=== PATIENT | male | born 1995 | race Caucasian/White ===

== ENCOUNTER 2018-02-04 05:07 | Emergency (ER) | payer BC ==
[~2018-02-04 05:07] MED LIST: IBUP200C71 PO; IBUP600T22 PO; LOR5/325 PO; MELA3TAB31 PO
[2018-02-04 05:12] VITALS: BP 138/93
--- NOTE | 2018-02-04 05:19 | ER Report ---
History and Physical Time Seen By MD: 05:12 HPI/ROS CHIEF COMPLAINT: Left great toe injury HISTORY OF PRESENT ILLNESS: 22-year-old male presents ambulatory to the ER complaining of left toe pain. He was wearing high-heeled shoes as part of a costume. He is on his feet for several hours. He has 4/10 dull pain aggravated by walking and bending of the toe. Allergies: Coded Allergies: No Known Drug Allergies (Unverified , 02/04/18) Home Meds Active Scripts Tramadol Hcl (TRAMADOL HCL) 50 Mg Tablet, 1 TAB PO Q6H Y for PAIN, #12 MG TAKE ONE TO TWO TABLETS BY MOUTH EVERY FOUR TO SIX HOURS NEEDED Prov:KARLA TERRY DO 02/04/18 Reported Medications Ibuprofen (IBUPROFEN) 200 Mg Capsule, 3 CAP PO DAILY Y for PAIN, CAPSULE 03/15/16 Reviewed Nurses Notes: Yes Old Medical Records Reviewed: Yes Hx Smoking: No Smoking Status: Never Smoker Exposure to Second Hand Smoke?: No Hx Substance Use Disorder: No Hx Alcohol Use: Yes Constitutional Vital Sign - Last 24 Hours 02/04/18 05:12 Temp 98.8 Pulse 117 Resp 14 B/P (MAP) 138/93 Pulse Ox 95 O2 Delivery Room Air Physical Exam General appearance: Alert no distress. Respiratory: Chest is non tender, lungs are clear to auscultation. Cardiac: Regular rate and rhythm Extremities: Examination of left lower trauma. Extremity reveals tenderness of the great toe. There is no soft tissue swelling, ecchymosis or bruising. There is no joint effusion. There is no warmth or erythema to the joint to suggest gout. DIFFERENTIAL DIAGNOSIS: After history and physical exam differential diagnosis was considered for sprain, strain, fracture, dislocation, contusion. Medical Decision Making EKG/Imaging Imaging X-ray: Left great toe, 3 views was obtained. I viewed the images myself on the PACS system. My interpretation of the images is: No fracture no dislocation, no malalignment. The radiologist interpretation had no clinically significant variation from this interpretation. ED Course/Re-evaluation ED Course Patient was admitted to an examination room. H&P was done. The differential diagnoses was considered. On clinical examination. Patient has clinical findings of a toe sprain. His mechanism of injury would suggest a toe sprain. X-ray OB performed to rule out occult fracture. Diagnostic x-rays were unremarkable. Patient advised to conservative treatment plan. He is placed in a postoperative shoe to protect his toe. Patient's advised ibuprofen 600 mg 3 times daily. Patient was given a prescription for tramadol for temporary pain relief. Decision to Disposition Date: Feb 04, 2018 Decision to Disposition Time: 05:32 Depart Departure Latest Vital Signs Vital Signs Date Time Temp Pulse Resp B/P (MAP) Pulse Ox O2 Delivery O2 Flow Rate FiO2 02/04/18 05:12 98.8 117 14 138/93 95 Room Air Impression: Primary Impression: Sprain of left great toe Condition: Improved Disposition: HOME OR SELF-CARE New Scripts Tramadol Hcl (TRAMADOL HCL) 50 Mg Tablet 1 TAB PO Q6H Y for PAIN, #12 MG TAKE ONE TO TWO TABLETS BY MOUTH EVERY FOUR TO SIX HOURS NEEDED Prov: KARLA TERRY DO 02/04/18 Patient Instructions: Foot Sprain (ED) Additional Instructions: Take ibuprofen 200 mg 3-4 tablets 3 times a day with food Apply ice packs for 2 days, then advance to heat Avoid activity or shoes that aggravate the condition for 5-7 days Problem Qualifiers Primary Impression: Sprain of left great toe Encounter type: initial encounter Qualified Codes: S93.502A - Unspecified sprain of left great toe, initial encounter KARLA TERRY DO Feb 04, 2018 05:19
[2018-02-04] MEDS ORDERED: TRAM-420 PO (05:41)
[2018-02-04] MEDS ORDERED: traMADol 50 MG TAB TH 2 TAB/BOTTLE PO ONE (05:45)
--- NOTE | 2018-02-04 05:46 | RADIOLOGY IMAGING REPORT ---
FACILITY: [facility] - [place] PATIENT NAME: Shamar Regalado : 1995 MR: [id number] V: [id number] EXAM DATE: ORDERING PHYSICIAN: KARLA TERRY TECHNOLOGIST: Location: [facility] [place] Patient: Shamar Regalado : 1995 Visit/Account:[id number] Date of Sevice: 02/04/2018 TOE LEFT FOOT GREAT TOE Indication: Left great toe injury. Comparison: January 08, 2014 Findings: No acute fracture or dislocation. No osseous or joint centered abnormality. There is a bipartite lateral sesamoid at the first MTP join t. This was seen on the 2013 exam. No evidence of radiopaque foreign body. No soft tissue abnormality. IMPRESSION: 1. No acute osseous or joint centered abnormality of the left great toe. Report Dictated By: Jony Wray at 02/04/2018 5:37 AM Report E-Signed By: Jony Wray at 02/04/2018 5:40 AM WSN:[id number]
== END 2018-02-04 05:50 | disposition home or self-care (01) ==
LOC: ER 05:23
DX: S93.502A Unspecified sprain of left great toe, initial encounter (principal)
CPT/HCPCS: 73660; 99282; C9399